=== PATIENT | male | born 1965 ===

== ENCOUNTER 2021-01-27 15:17 | Inpatient (IN) ==
[2021-01-27] MEDS ORDERED: GLUCAGON 1 MG VIAL IM PRN (18:04)
[2021-01-27] MEDS ORDERED: DEXTROSE 50% 25 GM/50 ML VIAL IV PRN ×2 (18:04→18:39)
[2021-01-27] MEDS ORDERED: ONDANSETRON 4 MG/2 ML VIAL IV PRN (18:04)
[2021-01-27] MEDS ORDERED: SODIUM CHLORIDE 0.9% 1,000 ML IV PRN (18:22)
[2021-01-27 19:04] LABS: % Iron Saturation 6.3 % (18-50)
[2021-01-27 19:12] LABS: Alanine Aminotransferase < 9 U/L (16-61); Albumin 2.5 G/DL (3.4-5.0); Alkaline Phosphatase 91 U/L (45-117); Aspartate Amino Transferase 13 U/L (0-37); Blood Urea Nitrogen 11 MG/DL (7-18); Carbon Dioxide 31 MMOL/L (21-32); Estimated Glom Filtration Rate 65 ML/MIN; Glucose 91 MG/DL (74-106); Osmolality,Calculated 275.5 MOS/KG (273-304); Potassium 2.9 MMOL/L (3.5-5.1); Sodium 139 MMOL/L (136-145)
[2021-01-27] MEDS ORDERED: POTASSIUM CHLORIDE RIDER 10 MEQ/100 ML PREMIX IV PRN (19:24)
[2021-01-27 19:49] LABS: Sedimentation Rate-Westergren 131 MM/HR (0-20)
[2021-01-27 19:50] LABS: Basophils % 0.2 % (0.0-0.8); Eosinophils # 0.3 10*3/uL (0.0-0.87); Eosinophils % 2.2 % (0.00-10.9); Immature Granulocytes % 0.6 %; Immature Granulocytes Absolute 0.07 #; Lymphocytes # 2.1 10*3/uL (1.4-4.0); Lymphocytes % 18.6 % (21.2-54.2); Mean Corpuscular HGB Conc 28.5 GM/DL (32-36); Mean Corpuscular Volume 79.3 FL (87-102); Mean Platelet Volume 9.6 FL (9.6-12.0); Monocytes % 7.2 % (1.7-12.7); Neutrophils % 71.2 % (38.7-73.9); Platelet Count 161 T/CUMM (130-400); Red Blood Count 2.08 MC/CUMM (3.8-5.5); Red Cell Distribution Width 18.8 % (9.3-17.3); White Blood Count 11.2 T/CUMM (4-12)
[2021-01-27 19:52] LABS: Hematocrit 16.5 VOL% (42.0-52.0); Hemoglobin 4.7 GM/DL (14.0-18.0)
[2021-01-27 20:00] LABS: Eosinophils 2 % (0-10); Lymphocytes 13 % (20-55); Microcytosis 1+; Segmented Neutrophils 81 % (50-85); Total Cells Counted 100
[2021-01-27 20:01] LABS: Anisocytosis 1+; Hypochromasia 3+; Polychromasia Few; Schistocytes Few
[2021-01-27 20:03] LABS: Platelet Estimate Decreased
[2021-01-27] MEDS: POTASSIUM CHLORIDE 20 MEQ/15 ML UDCUP PER TUBE PRN (20:18)
[2021-01-27 20:21] LABS: Folate 15.75 NG/ML (5.38-24.0); Vitamin B12 437 PG/ML (211-911)
[2021-01-27] MEDS: PANTOPRAZOLE 40 MG VIAL IV SCH (21:40)
[2021-01-27] MEDS: INSULIN LISPRO 100 UNIT/ML SUBCUT SCH (23:06)
[2021-01-28 04:57] LABS: Basophils % 0.3 % (0.0-0.8); Eosinophils # 0.2 10*3/uL (0.0-0.87); Eosinophils % 3.3 % (0.00-10.9); Hematocrit 18.1 VOL% (42.0-52.0); Immature Granulocytes % 0.4 %; Immature Granulocytes Absolute 0.03 #; Lymphocytes # 1.8 10*3/uL (1.4-4.0); Lymphocytes % 25.3 % (21.2-54.2); Mean Corpuscular HGB Conc 30.4 GM/DL (32-36); Mean Corpuscular Volume 78.4 FL (87-102); Mean Platelet Volume 9.5 FL (9.6-12.0); Monocytes % 7.6 % (1.7-12.7); Neutrophils % 63.1 % (38.7-73.9); Platelet Count 126 T/CUMM (130-400); Red Blood Count 2.31 MC/CUMM (3.8-5.5); White Blood Count 7.2 T/CUMM (4-12)
[2021-01-28 05:00] LABS: Hemoglobin 5.5 GM/DL (14.0-18.0)
[2021-01-28 05:18] LABS: Eosinophils 2 % (0-10); Hypochromasia 2+; Lymphocytes 18 % (20-55); Microcytosis 1+; Platelet Estimate Normal; Segmented Neutrophils 78 % (50-85); Total Cells Counted 100
[2021-01-28 05:31] LABS: Calcium 7.8 MG/DL (8.5-10.1); Osmolality,Calculated 277.4 MOS/KG (273-304); Potassium 2.9 MMOL/L (3.5-5.1); Risk Ratio 1.58
[2021-01-28] MEDS ORDERED: SODIUM CHLORIDE 0.9% 1,000 ML IV PRN (07:54)
[2021-01-28 08:23] LABS: Hemoglobin 6.8 GM/DL (14.0-18.0)
[2021-01-28] MEDS: INSULIN LISPRO 100 UNIT/ML SUBCUT SCH ×4 (09:01→20:41)
[2021-01-28] MEDS: PANTOPRAZOLE 40 MG VIAL IV SCH ×2 (09:13→20:39)
[2021-01-28] MEDS: POTASSIUM CHLORIDE 20 MEQ PACK PO ONE ×2 (09:20→10:30)
[2021-01-28 09:32] LABS: Hemoglobin A1 (Alkaline) 97.9 % (96.5-98.5); Hemoglobin A2 (Alkaline) 2.1 % (1.5-3.5)
[2021-01-28 10:37] LABS: Alanine Aminotransferase < 6 U/L (16-61); Albumin 2.4 G/DL (3.4-5.0); Alkaline Phosphatase 90 U/L (45-117); Aspartate Amino Transferase 13 U/L (0-37); Blood Urea Nitrogen 10 MG/DL (7-18); Carbon Dioxide 31 MMOL/L (21-32); Estimated Glom Filtration Rate 73 ML/MIN; Glucose 79 MG/DL (74-106); Osmolality,Calculated 276.4 MOS/KG (273-304); Potassium 3.2 MMOL/L (3.5-5.1); Sodium 140 MMOL/L (136-145); Total Protein 6.7 G/DL (6.4-8.2)
[2021-01-28 21:03] LABS: Hemoglobin 8.3 GM/DL (14.0-18.0)
[2021-01-28] MEDS: MORPHINE 4 MG/1 ML VIAL IV PRN (21:13)
[2021-01-29] MEDS: MORPHINE 4 MG/1 ML VIAL IV PRN ×2 (03:27→08:48)
[2021-01-29 05:42] LABS: Basophils % 0.4 % (0.0-0.8); Eosinophils # 0.2 10*3/uL (0.0-0.87); Hematocrit 26.2 VOL% (42.0-52.0); Hemoglobin 8.1 GM/DL (14.0-18.0); Immature Granulocytes % 0.8 %; Immature Granulocytes Absolute 0.09 #; Lymphocytes # 1.8 10*3/uL (1.4-4.0); Lymphocytes % 17.1 % (21.2-54.2); Mean Corpuscular HGB Conc 30.9 GM/DL (32-36); Mean Corpuscular Volume 79.9 FL (87-102); Mean Platelet Volume 9.5 FL (9.6-12.0); Monocytes % 7.6 % (1.7-12.7); Neutrophils % 72.1 % (38.7-73.9); Platelet Count 116 T/CUMM (130-400); Red Blood Count 3.28 MC/CUMM (3.8-5.5); Red Cell Distribution Width 17.2 % (9.3-17.3); White Blood Count 10.6 T/CUMM (4-12)
[2021-01-29 05:49] LABS: Calcium 7.8 MG/DL (8.5-10.1); Osmolality,Calculated 276.5 MOS/KG (273-304); Potassium 3.5 MMOL/L (3.5-5.1)
[2021-01-29 05:51] LABS: Hypochromasia 1+; Lymphocytes 16 % (20-55); Microcytosis 1+; Platelet Estimate Decreased; Segmented Neutrophils 80 % (50-85); Total Cells Counted 100
[2021-01-29] MEDS: INSULIN LISPRO 100 UNIT/ML SUBCUT SCH ×2 (08:37→12:10)
[2021-01-29] MEDS: POTASSIUM CHLORIDE 20 MEQ/15 ML UDCUP PER TUBE PRN ×2 (08:41→08:48)
[2021-01-29] MEDS: PANTOPRAZOLE 40 MG VIAL IV SCH (08:50)
[2021-01-29 12:05] VITALS: BP 104/67
== END 2021-01-29 15:05 | disposition home or self-care (01) | DRG 253 ==
LOC: N.4E → SUATTDRO 17:54
PROVIDERS: ADMIT Internal Medicine; ATTEND Internal Medicine